=== PATIENT | female | born 1965 | race Caucasian/White ===

== ENCOUNTER 2020-10-04 16:41 | Emergency (ER) | payer SELFPAY ==
[~2020-10-04] VITALS: Ht 167.7 cm; Wt 86.2 kg
[2020-10-04] MEDS ORDERED: KETOROLAC 60 MG/2 ML VIAL IM STA (16:53)
--- NOTE | 2020-10-04 16:53 | ED Lower Extremity ---
General Chief Complaint: Lower Extremity Stated Complaint: LT LEG PAIN/SWELLING History of Present Illness Date Seen by Provider: Oct 04, 2020 Time Seen by Provider: 16:49 Initial Comments 54-year-old female presents with left lateral knee pain and what she feels is swelling. Reports it started 3 days ago. Patient complains of some numbness and tingling down the lateral aspect, but in the posterior aspect of her knee. Some very minimal tenderness in the posterior aspect of the knee. She has full range of motion is able to bear weight. She denies any acute injury. No erythema. No fevers chills or other systemic complaints. Allergies and Home Medications Allergies Coded Allergies: No Known Drug Allergies (Unverified , 10/04/20) Patient Home Medication List Home Medication List Reviewed: Yes Review of Systems Constitutional: No chills, No fever EENTM: no symptoms reported Respiratory: no symptoms reported Cardiovascular: no symptoms reported Gastrointestinal: no symptoms reported Musculoskeletal: see HPI Skin: see HPI Psychiatric/Neurological: No Symptoms Reported Past Eytsjxf-Nubpvj-Iacrza Hx Past Med/Social Hx: Reviewed Nursing Past Med/Soc Hx Physical Exam Vital Signs Capillary Refill : Height, Weight, BMI Height: '" Weight: lbs. oz. kg; BMI Method: General Appearance: WD/WN, no apparent distress Cardiovascular: normal peripheral pulses, regular rate, rhythm Respiratory: chest non-tender, lungs clear Hips: bilateral hip non-tender Legs: bilateral leg non-tender Knees: left knee soft tissue tenderness (Lateral aspect), left knee swelling (None appreciated) Ankles: bilateral ankle non-tender Neurologic/Psychiatric: alert, normal mood/affect, oriented x 3 Skin: normal color, warm/dry Progress/Results/Core Measures Results/Orders Lab Results Laboratory Tests Test 10/04/20 17:00 Range/Units D-Dimer 0.34 0.00-0.49 UG/ML My Orders Orders - BERNA VALLECILLO DO Knee 3 View Left (10/04/20 16:53) Fibrin Degradation Products (10/04/20 16:53) Ketorolac Injection (Toradol Injection) (10/04/20 17:30) Medications Given in ED Current Medications Medications Dose Ordered Sig/Liz Route Start Time Stop Time Status Last Admin Dose Admin Ketorolac Tromethamine 15 mg ONCE ONCE IVP 10/04/20 17:30 10/04/20 17:31 DC 2/5/21 17:31 15 MG Progress Progress Note : Time: 17:37 Progress Note Patient with mild joint effusion on x-ray. No significant findings on physical exam with good stability of her ligaments. Patient with likely twisted knee versus possible cartilage injury. Recommend she follow-up with Grant Marcum next week for further evaluation if symptoms or not improved Diagnostic Imaging Diagonstic Imaging: Xray Plain Films/CT/US/NM/MRI: knee Comments [facility] [place], [place] NAME: JAIRO WEISS [facility] REC#: [id number] PT STATUS: REG ER : 1965 PHYSICIAN: BERNA VALLECILLO DO ADMIT DATE: 10/04/20/ER FS Draft Date of Exam:10/04/20 KNEE 3 VIEW LEFT INDICATION: Knee pain. Injury three days ago. EXAMINATION: Left knee, 10/04/2020. FINDINGS: 3 views of the knee. No fracture or dislocation appreciated. There is a small joint effusion. IMPRESSION: 1. No acute osseous abnormality. 2. Joint effusion. Dictated on workstation # [id number] Dict: 10/04/20 1719 Trans: 10/04/[address] [facility] [id number] Interpreted by: SAMUEL SOMMERS MD Electronically signed by: Reviewed: Reviewed by Me, Reviewed/Discussed Departure Impression Primary Impression: Acute internal derangement of left knee Disposition: 01 HOME, SELF-CARE Condition: Stable Departure-Patient Inst. Referrals: LALA MILLER NET PROGRAMMER ANALYST (PCP/Family) Primary Care Physician Patient Instructions: Internal Derangement of the Knee, Knee Sprain ED Add. Discharge Instructions: Ice or warm moist heat to affected area depend on which when helps with pain 4% topical lidocaine with menthol as directed on package Thom wrap Follow-up with Grant Marcum next week if symptoms or not improving for further evaluation and possible MRI All discharge instructions reviewed with patient and/or family. Voiced understanding. Scripts Naproxen (Naprosyn) 500 Mg Tablet 500 MG PO BID, #30 TAB 0 Refills Prov: BERNA VALLECILLO DO 10/04/20 BERNA VALLECILLO DO Oct 04, 2020 16:52
--- NOTE | 2020-10-04 17:23 | Diagnostic Imaging Report ---
INDICATION: Knee pain. Injury three days ago. EXAMINATION: Left knee, 10/04/2020. FINDINGS: 3 views of the knee. No fracture or dislocation appreciated. There is a small joint effusion. IMPRESSION: 1. No acute osseous abnormality. 2. Joint effusion. Dictated by: Dictated on workstation # [id number]
[2020-10-04] MEDS ORDERED: KETOROLAC 30 MG/ML VIAL IVP ONE (17:30)
[2020-10-04] MEDS ORDERED: NAPR-1071 PO (17:41)
[2020-10-04 17:49] VITALS: BP 144/85
== END 2020-10-04 17:55 | disposition home or self-care (01) ==
LOC: ER FS 16:42
DX: M23.92 Unspecified internal derangement of left knee (principal)
CPT/HCPCS: 36415; 73562; 85379

== ENCOUNTER 2022-03-07 21:20 | Emergency (ER) | payer OTHER ==
[~2022-03-07] VITALS: Ht 167.7 cm; Wt 86.0 kg
[~2022-03-07 21:20] MED LIST: NAPR-1071 PO
[2022-03-07 21:32] VITALS: BP 174/80
[2022-03-07] MEDS ORDERED: methylPREDNISolone 80 MG/ML (DEPO MEDROL) VIAL IM STA (22:03)
[2022-03-07] MEDS ORDERED: ORPHENADRINE 60 MG/2 ML (NORFLEX) AMP (ED ONLY) IM STA (22:03)
[2022-03-07] MEDS ORDERED: METH-732 PO (22:07)
[2022-03-07] MEDS ORDERED: IBUP-1780 PO (22:07)
--- NOTE | 2022-03-07 22:07 | ED Back Pain ---
General Chief Complaint: Back Problems Stated Complaint: GUTIERREZ PAIN Nursing Triage Note: Pt states that her mother is essentially a total-care at home and she has been taking care of her. She denies any recent injury, but states that over the last 3 days her back pain has increased and now has radiation down her left leg. She denies taking anything over the counter for pain and states that she did not take anything because she did not eat today and didn't want to take anything on an empty stomach. reports that she did not eat today because she was too busy taking care of her mother. Source of Information: Patient History of Present Illness Date Seen by Provider: Mar 07, 2022 Time Seen by Provider: 21:51 Initial Comments 56-year-old female presenting with complaint of low back pain and pain shooting down her left leg. This is been getting worse over the last several days. She thinks she may have wrenched her back or twisted wrong when she has been having to help take care of her mom. Her mother has dementia and does not help with changing positions or moving from chair to the bed. 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 She denies any fall or direct trauma to her back. She has had no loss of bowel or bladder control. She had not taken anything for pain today because she had not eaten because she was taking care of her mother the entire day. She did not take pain medicine on empty stomach. Location: Lumbar Spine Timing/Duration: 2-3 Days Severity: Severe Pain/Injury Location: Back (Low back and left hip going down her leg) Radiation: Lower Legs (Left hip going down her leg) Method of Injury: Other (Lifting and twisting to move her mother) Modifying Factors: Worse With Movement Associated Symptoms: muscle spasms; No fever, No weakness, No numbness in legs/feet, No tingling in legs/feet, No sensory/motor loss; lower back pain; No loss of bladder control, No loss of bowel control Allergies and Home Medications Allergies Coded Allergies: No Known Drug Allergies (Unverified , 10/04/20) Patient Home Medication List Home Medication List Reviewed: Yes Ibuprofen (Ibuprofen) 800 Mg Tablet, 800 MG PO Q8H PRN for PAIN Prescribed by: CANDY GARCIA on 03/07/22 5742 Methocarbamol (Methocarbamol) 750 Mg Tablet, 1,500 MG PO Q8H PRN for back pain/sciatica Prescribed by: CANDY GARCIA on 03/07/222206 Naproxen (Naprosyn) 500 Mg Tablet, 500 MG PO BID Prescribed by: BERNA VALLECILLO on 10/04/20 174 Review of Systems Constitutional: No chills, No fever EENTM: no symptoms reported Respiratory: no symptoms reported Cardiovascular: no symptoms reported Gastrointestinal: no symptoms reported Genitourinary: no symptoms reported Musculoskeletal: back pain Skin: No change in color, No rash Psychiatric/Neurological: Denies Numbness, Denies Paresthesia Past Khjhkgd-Comrbz-Hhcehy Hx Patient Social History Tobacco Use?: Yes Tobacco type used: Cigarettes Smoking Status: Heavy Tobacco Smoker Use of E-Cig and/or Vaping dev: No Substance use?: No Alcohol Use?: No Pt feels they are or have been: No Immunizations Up To Date Influenza Vaccine Up-to-Date: No; Not Current Seasonal Allergies Seasonal Allergies: No Past Medical History Surgeries: Yes Gallbladder, Hysterectomy, Orthopedic Respiratory: No Cardiac: No Neurological: No Genitourinary: No Gastrointestinal: No Musculoskeletal: No Endocrine: No HEENT: No Cancer: No Psychosocial: No Integumentary: No Physical Exam Vital Signs Vital Signs - First Documented 03/07/22 21:32 Temp 36.2 Pulse 73 Resp 18 B/P (MAP) 174/80 (111) Pulse Ox 98 O2 Delivery Room Air Capillary Refill : Less Than 3 Seconds Height, Weight, BMI Height: '" Weight: lbs. oz. kg; 30.00 BMI Method: General Appearance: WD/WN, Mild Distress HEENT: PERRL/EOMI, Pharynx Normal Cardiovascular: Regular Rate, Rhythm Back: No No CVA Tenderness, No No Vertebral Tenderness Extremity: Normal Capillary Refill, No Pedal Edema, Other (Tender to palpation over the left sacroiliac joint.) Neurologic/Psychiatric: Alert, Oriented x3, No Motor/Sensory Deficits, electrocardiograph operator II- XII Norm as Tested Skin: Normal Color, Warm/Dry Progress/Results/Core Measures Results/Orders My Orders Orders - CANDY GARCIA MD Dexamethasone Injection (Decadron Inje (03/07/22 22:03) Methylprednisolone Acetate Inj (Depo-Med (03/07/22 22:03) Orphenadrine Inj (Ed Only) (Norflex Inje (03/07/22 22:03) Vital Signs/I&O 03/07/22 21:32 Temp 36.2 Pulse 73 Resp 18 B/P (MAP) 174/80 (111) Pulse Ox 98 O2 Delivery Room Air Blood Pressure Mean: 111 Progress Progress Note : Progress Note Discussed with patient about imaging to look for signs of acute bony injury. If she wanted that to be done as an outpatient. Try giving steroid to help with pain and inflammation tonight. We will also give a muscle relaxer. Prescribed muscle relaxer and anti-inflammatories for home. Encouraged to check with the clinic if not improving. May alternate ice and heat as well. Departure Impression Primary Impression: Low back pain with left-sided sciatica Qualified Codes: M54.42 - Lumbago with sciatica, left side Disposition: HOME, SELF-CARE Condition: Stable Departure-Patient Inst. Decision time for Depature: 22:05 Referrals: LALA MILLER APRN (PCP/Family) Primary Care Physician Patient Instructions: Low Back Pain ED, Sciatica ED Add. Discharge Instructions: May apply ice alternating with heat to help with pain in low back and left hip. The steroid shots from today will help with the pain and inflammation. You may continue ibuprofen 800 mg every 8 hours as needed for pain and inflammation. You could also take acetaminophen 650 mg every 6 hours as needed for pain. The muscle relaxer will help with pain in your low back and going down your leg. If you are still not having any improvement or things are worsening check with the clinic as they may need to do a CT scan or MRI to look further into your low back and hip pain. All discharge instructions reviewed with patient and/or family. Voiced understanding. Scripts Methocarbamol (Methocarbamol) 750 Mg Tablet 1500 MG PO Q8H PRN for back pain/sciatica for 10 Days, #60 TAB 0 Refills Prov: CANDY GARCIA MD 03/07/22 Ibuprofen (Ibuprofen) 800 Mg Tablet 800 MG PO Q8H PRN for PAIN for 10 Days, #30 TAB 0 Refills Prov: CANDY GARCIA MD 03/07/22 CANDY GARCIA MD Mar 07, 2022 22:07
== END 2022-03-07 22:31 | disposition home or self-care (01) ==
LOC: EDUNIT# 21:20 → ER FS 21:23
DX: M54.42 Lumbago with sciatica, left side (principal); F17.210 Nicotine dependence, cigarettes, uncomplicated; Z28.310 Unvaccinated for COVID-19; X50.1XXA Overexertion from prolonged static or awkward postures, initial encounter
CPT/HCPCS: 99284

== ENCOUNTER 2022-05-04 19:54 | Emergency (ER) | payer OTHER ==
[~2022-05-04] VITALS: Ht 167.7 cm; Wt 86.1 kg
[~2022-05-04 19:54] MED LIST changes: +IBUP-1780 PO; +METH-732 PO
[2022-05-04 19:56] VITALS: BP 187/98
[2022-05-04] MEDS ORDERED: CYCLOBENZAPRINE 10 MG (FLEXERIL) TAB PO STA (20:03)
[2022-05-04] MEDS ORDERED: CYCL10TA25 PO (20:10)
[2022-05-04] MEDS ORDERED: LIDO700A45 TP (20:10)
[2022-05-04] MEDS ORDERED: IBUP-1773 PO (20:10)
[2022-05-04] MEDS ORDERED: ACET-2267 PO (20:10)
--- NOTE | 2022-05-04 20:10 | ED Back Pain ---
General Chief Complaint: Back Problems Stated Complaint: BACK PAIN Nursing Triage Note: Patient states that she has been having sciatic pain for the last 3 days. 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 Patient took 800 mg of Ibuprofen approximately 8 hours ago. Source of Information: Patient Exam Limitations: No Limitations History of Present Illness Date Seen by Provider: May 04, 2022 Time Seen by Provider: 19:56 Initial Comments 56-year-old female with past medical history of sciatica coming in due to low back pain. Goes down her left leg, its been happening for 3 days, sharp, worse with movement, better with rest. Took ibuprofen which also helped which last dose was 8 hours ago. 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 She believes she lifted her wrong and has felt more pain since then. Denies any weakness, numbness, bowel or bladder issue, fever, falls, trauma, chest pain, shortness of breath, nausea, vomiting, or any other concerns. Allergies and Home Medications Allergies Coded Allergies: No Known Drug Allergies (Unverified , 10/04/20) Patient Home Medication List Home Medication List Reviewed: Yes Ibuprofen (Ibuprofen) 800 Mg Tablet, 800 MG PO Q8H PRN for PAIN Prescribed by: CANDY GARCIA on 03/07/222206 Methocarbamol (Methocarbamol) 750 Mg Tablet, 1,500 MG PO Q8H PRN for back pain/sciatica Prescribed by: CANDY GARCIA on 03/07/222206 Naproxen (Naprosyn) 500 Mg Tablet, 500 MG PO BID Prescribed by: BERNA VALLECILLO on 10/04/20 6261 Review of Systems Constitutional: No fever EENTM: No blurred vision Respiratory: No cough Cardiovascular: No chest pain Gastrointestinal: No abdominal pain Genitourinary: no symptoms reported Musculoskeletal: back pain Skin: no symptoms reported Psychiatric/Neurological: No Symptoms Reported All Other Systems Reviewed Negative Unless Noted: Yes Past Rrtxkcr-Alopjg-Ojblfw Hx Patient Social History Tobacco Use?: Yes Tobacco type used: Cigarettes Smoking Status: Current Everyday Smoker Substance use?: No Alcohol Use?: No Pt feels they are or have been: No Seasonal Allergies Seasonal Allergies: No Past Medical History Surgeries: Yes Gallbladder, Hysterectomy, Orthopedic Respiratory: No Cardiac: No Neurological: No Genitourinary: No Gastrointestinal: No Musculoskeletal: No Endocrine: No HEENT: No Cancer: No Psychosocial: No Integumentary: No Physical Exam Vital Signs Vital Signs - First Documented 05/04/22 19:56 Temp 37.0 Pulse 94 Resp 18 B/P (MAP) 187/98 (127) Pulse Ox 97 O2 Delivery Room Air Capillary Refill : Less Than 3 Seconds Height, Weight, BMI Height: '" Weight: lbs. oz. kg; 30.00 BMI Method: General Appearance: No Apparent Distress, WD/WN, Mild Distress HEENT: PERRL/EOMI, Normal ENT Inspection, Pharynx Normal Neck: Full Range of Motion, Normal Inspection, Non Tender, Supple Cardiovascular: Regular Rate, Rhythm, No Edema, Normal Peripheral Pulses Respiratory: Chest Non Tender, Lungs Clear, Normal Breath Sounds, No Accessory Muscle Use, No Respiratory Distress Gastrointestinal: Normal Bowel Sounds, Non Tender, Soft; No Distended, No Guarding Back: Normal Inspection, No CVA Tenderness, No Vertebral Tenderness, Muscle Spasm, Other (Positive straight leg test on the left) Extremity: Normal Capillary Refill, Normal Inspection, Normal Range of Motion, Non Tender, No Calf Tenderness, No Pedal Edema Neurologic/Psychiatric: Alert, No Motor/Sensory Deficits, Normal Mood/Affect, Other (Normal gait, 5 out of 5 strength with hip flexion, knee flexion, hip extension, knee extension, foot dorsiflexion and plantarflexion) Skin: Normal Color, Warm/Dry Lymphatic: No Adenopathy Progress/Results/Core Measures Results/Orders Vital Signs/I&O 05/04/22 19:56 Temp 37.0 Pulse 94 Resp 18 B/P (MAP) 187/98 (127) Pulse Ox 97 O2 Delivery Room Air Blood Pressure Mean: 127 Progress Progress Note : Progress Note 56-year-old female with above history coming in due to atraumatic back pain. ABCs were intact and vitals were stable on presentation. Physical exam r eassuring including no midline tenderness, no fever, no weakness or numbness, no bowel or bladder issues. Does have a lot of lifting that she does and seems clinically like this is some type of spasm or sciatica. Given lack of trauma and no midline tenderness, x-ray not performed. She will given medications for symptomatic management and can follow-up as an outpatient with orthopedics. Departure Impression Primary Impression: Low back pain with left-sided sciatica Qualified Codes: M54.42 - Lumbago with sciatica, left side Disposition: 01 HOME, SELF-CARE Condition: Stable Departure-Patient Inst. Decision time for Depature: 20:15 Referrals: ACOSTA MARCUM AMANDA S APRN (PCP) Primary Care Physician Patient Instructions: Low Back Pain (DC) Add. Discharge Instructions: Try to do some gentle stretching and movement at home. Ibuprofen was sent to your pharmacy when you run out of years as well as a muscle relaxer, extra strength tylenol, and you can also try the lidocaine patches where you hurt the most. This typically takes a couple weeks to get better if you are moving around. If is not better in a couple weeks then follow-up with Grant Marcum who is number is in this paperwork Scripts Acetaminophen (Tylenol Extra Strength) 500 Mg Tablet 1000 MG PO Q6H for 7 Days, #56 TAB Prov: ALEXANDER RIVAS MD 05/04/22 Lidocaine (Lidocaine 5% Patch) 5 % Adh..patch 1 EACH TP Q12H PRN for Neuropathic pain MDD 2 for 14 Days, #28 PATCH 2 patches max for 12 hours, then 12 hours patch-free period. Prov: ALEXANDER RIVAS MD 05/04/22 Cyclobenzaprine HCl (Cyclobenzaprine HCl) 10 Mg Tablet 10 MG PO Q8H PRN for SPASMS for 5 Days, #15 TAB 0 Refills Prov: ALEXANDER RIVAS MD 05/04/22 Ibuprofen (Ibuprofen) 600 Mg Tablet 600 MG PO Q6H PRN for PAIN-MILD for 5 Days, #20 TAB Prov: ALEXANDER RIVAS MD 05/04/22 Work/School Note: Work Release Form Date Seen in the Emergency Department: May 04, 2022 Return to Work: May 06, 2022 Restrictions: No Restrictions ALEXANDER RIVAS MD May 04, 2022 20:10
[2022-05-04] MEDS ORDERED: KETOROLAC 30 MG/ML VIAL IM ONE (20:15)
[2022-05-04] MEDS ORDERED: ACETAMINOPHEN 500 MG TAB (TYLENOL) PO ONE (20:15)
== END 2022-05-04 20:21 | disposition home or self-care (01) ==
LOC: EDUNIT# 19:54 → ER FS 19:55
DX: M54.42 Lumbago with sciatica, left side (principal); F17.210 Nicotine dependence, cigarettes, uncomplicated; Z28.310 Unvaccinated for COVID-19
CPT/HCPCS: 99284